=== PATIENT | female | born 1980 | race Hispanic/Latino ===

== ENCOUNTER 2019-11-02 17:48 | Emergency (ER) | payer BC ==
[~2019-11-02] VITALS: Ht 157.5 cm; Wt 71.2 kg
--- NOTE | 2019-11-02 18:30 | Emergency Department Note ---
History of Present Illnes History of Present Illness Chief Complaint: Laceration History of Present Illness This is a 38 year old female, with no significant past medical history, who pre sents for evaluation of a laceration of the palmar aspect of the left ring finger. Patient states that she was helping to clean up the kitchen after dinner this evening, when she was moving some glasses and one fell and broke, causing a piece of the glass to accidentally cut the palmar aspect of the left lateral ring finger, at the DIP joint. There is active bleeding, which patient has been unable to control, except by holding continuous pressure. The accident occurred approximately 30 minutes prior to arrival. Patient denies any numbness or tingling of the left hand. She does not recall when she had her last tetanus shot. Historian: Patient Arrival Mode: Car Septic Tank Servicer Required: No Onset (how long ago): minute(s) (30) Location: left right finger, palmar aspect; Quality: painful, bleedin; Radiation: Reports non-radiation Severity: moderate Onset quality: sudden Duration (how long): hour(s) (0.5) Timing of current episode: constant Progression: unchanged Chronicity: new Context: Reports trauma/injury (see HPI;) Relieving factors: other (holding pressure;) Associated symptoms: Reports denies other symptoms Treatments prior to arrival: none Past Medical/Family History Physician Review I have reviewed the patient's past medical and family history. Any updates have been documented here. Past Medical History Recent Fever: No Clinical Suspicion of Infectio: No New/Unexplained Change in Ment: No Past Medical History: None Past Surgical History: (x2;) Social History Smoking Cessation: Never Smoker Counseling Performed: No Any Illegal Drug Use: No TB Exposure/Symptoms: No Physically hurt or threatened: No Family History Family history of heart diseas: No Other Last Tetanus: > 5 years Any Pre-Existing Lines (PICC,: No Is patient up to date on immun: No Review of Systems Review of Systems Constitutional: Denies chills, Denies fever EENTM: Reports no symptoms Cardiovascular: Denies chest pain, Denies palpitations Respiratory: Reports no symptoms Gastrointestinal: Denies nausea, Denies vomiting Musculoskeletal: Denies muscle pain Integumentary: Reports other (laceration on palmar aspect of left ring finger) Psychological: Reports no symptoms Endocrine: Reports no symptoms Hematological/Lymphatic: Reports no symptoms Review of other systems: All other systems negative Physical Exam Related Data Allergies: Coded Allergies: No Known Allergies (Unverified , 11/02/19) Vital signs reviewed: Yes Physical Exam CONSTITUTIONAL Constitutional: Present well-developed, Present well-nourished HENT HENT: Present normocephalic, Present atraumatic, Present oropharynx clear/moist, Present nose normal HENT L/R: Present left ext ear normal, Present right ext ear normal EYES Eyes: Reports PERRL, Reports conjunctivae normal NECK Neck: Present ROM normal PULMONARY Pulmonary: Present effort normal, Present breath sounds normal CARDIOVASCULAR Cardiovascular: Present regular rhythm, Present heart sounds normal, Present capillary refill normal, Present normal rate GASTROINTESTINAL GENITOURINARY Genitourinary: Present exam deferred SKIN Skin: Present warm, Present dry, Present other (0.75 cm horizontal lac, located on the lateral aspect of the left ring finger at the DIP, with active oozing, with an aparent aterioiole bleeder; cap refill of finger is < 2 sec, radial pulse intact;) MUSCULOSKELETAL Musculoskeletal: Present ROM normal NEUROLOGICAL Neurological: Present alert, Present oriented x 3, Present no gross motor or sensory deficits; Absent sensory deficit, Absent weakness PSYCHOLOGICAL Psychological: Present mood/affect normal, Present judgement normal Results Imaging Imaging results reviewed: Yes Impressions [place] [address] Patient Name: ANGIE LONG MR #: [id number] : 1980 Age/Sex: 38/F Req #: [id number] Adm Physician: Ordered by: LETI DAY MD Report #: [id number] Location: [facility] Room/Bed: Procedure: HOPD/FINGER LT - [facility] Exam Date: 11/02/19 Exam Time: 184 REPORT STATUS: Signed X-ray left finger 3 views HISTORY: Pain. COMPARISON: None available. FINDINGS: Bandaging overlies the fourth finger, slightly limited soft tissue evaluation. Bones: No acute displaced fracture. Osseous alignment is within normal limits. Joints: The joint spaces are well-maintained. Soft tissues: The soft tissues appear unremarkable. IMPRESSION: No acute radiographic osseous abnormality or radiopaque foreign body identified. Signed by: Naveen Beard DO on 11/02/2019 7:43 PM Dictated By: NAVEEN BEARD DO 42 Transcribed By: DANIELLA on 11/02/191942 COPY TO: LETI DAY MD~ Procedures Laceration Laceration: Laceration 1 Site: hand (palmar aspect of left ring finger;) Side: left Size (cm): 0.75 Description: linear Depth: simple, single layer Local anesthesia: lidocaine 1% (a digital block was performed;) Amount of anesthesia (mL): 6 Pre-repair: wound exposed, deep structures intact Skin layer closed with: other (prolene) Size (cm): 4-0 Number of sutures: 4 Technique: simple, interrupted Additional comments The wound was examined in a bloodless field, by applying a small tourniquet to the base of the left fourth finger. The tourniquet was left on for only a short period of time, so that the wound could be better evaluated. After all 4 sutures were placed, following a digital block, there was no further bleeding from the site. Patient had full range of motion of the left ring finger, with capillary refill less than 2 seconds. Patient was observed after the sutures were placed, for approximately 30 minutes, with no recurrence of the bleeding. A dressing was placed, with copious topical antibiotics, along with a finger splint, to immobilize the finger, to protect it from further trauma, which could cause recurrent bleeding. Patient tolerated the procedure well. Assessment & Plan Medical Decision Making MDM - Reviewed the results of the x-ray of the left fourth finger with patient, which revealed no foreign bodies or glass present in the wound. - Keep wound clean and dry for 24 hours, then you may gently remove the dressing, wash with antibacterial soap and water, dry, and apply [id number]-[id number]-qofqkix antibiotic ointment generously to the wound such as "Triple Antibiotic Ointment, Bacitracin, or Neosporin." After 24 hours, you will repeat this twice daily, and cover the wound. - Keep the splint in place on the left ring finger for at least 48 hours, to allow the wound to stabilize. - Return in 10 days, for suture removal, or sooner for any signs of infection including redness, drainage, or swelling at the wound site. The sutures will be left in for this time., Due to the fact that the laceration is an area of flexion on the finger. - Return to the ER in the next 24 hours, if the wound begins to bleed profusely, or the wound is swelling or discolored. Patient is encouraged to observe the wound closely, and she was understanding of the plan. - Keep the left upper extremity elevated to the level of the heart, as much as possible, to help with pain and swelling. - You may take Extra Strength Tylenol 500 mg - 2 tablets every 4 hours as needed for pain and/or Ibuprofen/Advil 200 mg 3 tablets every 6 hours as needed for pain. Assessment & Plan Final Impression: (1) Laceration of finger of left hand Depart Disposition: HOME, SELF-CARE LETI DAY MD Nov 02, 2019 18:30
[2019-11-02] MEDS ORDERED: IBUPROFEN 600 MG TAB PO ONE (18:40)
[2019-11-02] MEDS ORDERED: DIPHTH/TETANUS/ACEL. PERTUSSIS 0.5 ML SYR IM ONE (18:45)
[2019-11-02] MEDS ORDERED: LIDOCAINE HCL 1% LOCAL INJ 20 ML VIAL ONE (18:50)
[2019-11-02] MEDS ORDERED: IBUPROFEN 600 MG TAB ONE (18:51)
[2019-11-02] MEDS ORDERED: TETANUS/DIPHTHERIA TOX ADULT 0.5 ML SYR ONE (18:51)
--- NOTE | 2019-11-02 19:46 | Diagnostic Imaging Report ---
X-ray left finger 3 views HISTORY: Pain. COMPARISON: None available. FINDINGS: Bandaging overlies the fourth finger, slightly limited soft tissue evaluation. Bones: No acute displaced fracture. Osseous alignment is within normal limits. Joints: The joint spaces are well-maintained. Soft tissues: The soft tissues appear unremarkable. IMPRESSION: No acute radiographic osseous abnormality or radiopaque foreign body identified. Signed by: Naveen Beard DO on 11/02/2019 7:43 PM
--- OUTSIDE RECORDS SUMMARY | 2019-11-02 20:52 | XMS REPORT | Clinical Summary ---
Author Author [facility] Address Unknown Phone Unavailable Care Team Providers Care Last Puller Name Role Phone PCP Unavailable Allergies Not on File Medications Not on file Active Problems Not on file Social History Date Tobacco Use Types Packs/Day Years Used Never Assessed Sex Assigned at Date Recorded Not on file Industry Job Start Date Occupation Not on file Not on file Not on file Travel End Travel History Travel Start No recent travel history available. Last Filed Vital Signs Not on file Plan of Treatment Not on file Results Not on fileafter 11/01/2018 Insurance Payer Benefit Subscriber ID Type Phone Address Plan / Group BLUE CROSS[employer]BLUE SHIELD BCBS PPO xxxxxxxxxxxx PPO [address] [place] [address] CHOICE
--- OUTSIDE RECORDS SUMMARY | 2019-11-02 20:52 | XMS REPORT | Continuity of Care Document ---
Author Author [facility] Organization [facility] Address [address] [place] [address] Phone Unavailable Care Team Providers Care Automotive Product Engineer Name Role Phone Karlie DAY Unavailable Problems This patient has no known problems. Allergies, Adverse Reactions, Alerts This patient has no known allergies or adverse reactions. Social History Social Habit Start Date Stop Date Quantity Comments Source Sex Assigned At [facility] Medications This patient has no known medications. Procedures This patient has no known procedures. Results Test Description Test Time Test Comments Results Result Comments Source FINGER LT - [facility] 2019-11-02 19:41:00 [place] [address] Patient Name: ANGIE LONG MR #: [id number] : 1980 Age/Sex: 38/F Req #: [id number] [facility] Physician: Ordered by: LETI DAY MD Report #: [id number] Location: [facility] Room/Bed: Procedure: HOPD/FINGER LT - [facility] Exam Date: 11/02/19 Exam Time: 1847 REPORT STATUS: Signed X-ray left finger 3 views HISTORY: Pain. COMPARISON: None available. FINDINGS: Bandaging overlies the fourth finger, slightly limited soft tissue evaluation. Bones: No acute displaced fracture. Osseous alignment is within normal limits. Joints: The joint spaces are well-maintained. Soft tissues: The soft tissues appear unremarkable. IMPRESSION: No acute radiographic osseous abnormality or radiopaque foreign body identified. Signed by: Naveen Beard DO on 11/02/2019 7:43 PM Dictated By: NAVEEN BEARD DO 42 Transcribed By: DANIELLA on 11/02/191942 COPY TO: LETI DAY MD
== END 2019-11-02 20:48 | disposition home or self-care (01) ==
LOC: FSED 20:30
DX: S61.215A Laceration without foreign body of left ring finger without damage to nail, initial encounter (principal); W25.XXXA Contact with sharp glass, initial encounter; Y93.G1 Activity, food preparation and clean up; Y92.000 Kitchen of unspecified non-institutional (private) residence as the place of occurrence of the external cause
CPT/HCPCS: 12001; 73140; 90471; 90714; 99283; J2001

== ENCOUNTER 2019-11-13 17:23 | Emergency (ER) | payer BC ==
[~2019-11-13] VITALS: Ht 157.5 cm; Wt 71.2 kg
--- NOTE | 2019-11-13 17:43 | Emergency Department Note ---
History of Present Illnes History of Present Illness Chief Complaint: General Medicine Complaints History of Present Illness This is a 38 year old female Chief Complaint Comment needs stitches out. left ring finger pad. She has been keeping it clean, no other concerns. Historian: Patient Arrival Mode: Car Commercial Underwriter Required: No Onset (how long ago): day(s) (11) Location: Laceration L 4th digit Quality: laceraiton Radiation: Reports non-radiation Severity: mild Onset quality: sudden Duration (how long): day(s) (11) Timing of current episode: constant Progression: improving Chronicity: new Context: Denies recent illness, Denies recent surgery Relieving factors: none Exacerbating factors: none Associated symptoms: Reports denies other symptoms Treatments prior to arrival: none Past Medical/Family History Physician Review I have reviewed the patient's past medical and family history. Any updates have been documented here. Past Medical History Recent Fever: No Clinical Suspicion of Infectio: No New/Unexplained Change in Ment: No Past Medical History: None Past Surgical History: Social History Smoking Cessation: Never Smoker Counseling Performed: No Physically hurt or threatened: No Other Last Tetanus: > 5 years Any Pre-Existing Lines (PICC,: No Review of Systems Review of Systems Constitutional: Reports no symptoms EENTM: Reports no symptoms Cardiovascular: Reports no symptoms Respiratory: Reports no symptoms Gastrointestinal: Reports no symptoms Genitourinary: Reports no symptoms Musculoskeletal: Reports no symptoms Integumentary: Reports as per HPI Neurological: Reports no symptoms Psychological: Reports no symptoms Endocrine: Reports no symptoms Hematological/Lymphatic: Reports no symptoms Physical Exam Related Data Allergies: Coded Allergies: No Known Allergies (Unverified , 11/02/19) Triage Vital Signs Vital Signs Date Time Temp Pulse Resp B/P (MAP) Pulse Ox O2 Delivery O2 Flow Rate FiO2 11/13/19 17:26 97.9 97 16 167/101 100 Room Air Vital signs reviewed: Yes Physical Exam CONSTITUTIONAL Constitutional: Present well-developed, Present well-nourished HENT HENT: Present normocephalic, Present atraumatic, Present oropharynx clear/m oist, Present nose normal HENT L/R: Present left ext ear normal, Present right ext ear normal EYES Eyes: Reports PERRL, Reports conjunctivae normal NECK Neck: Present ROM normal PULMONARY Pulmonary: Present effort normal, Present breath sounds normal CARDIOVASCULAR Cardiovascular: Present regular rhythm, Present heart sounds normal, Present capillary refill normal, Present normal rate GASTROINTESTINAL Abdominal: Present soft, Present nontender, Present bowel sounds normal GENITOURINARY Genitourinary: Present exam deferred SKIN Skin: Present warm, Present dry, Present other (Well healing 1cm laceration to Left 4th digit, volar aspect DIP crease) MUSCULOSKELETAL Musculoskeletal: Present ROM normal NEUROLOGICAL Neurological: Present alert, Present oriented x 3, Present no gross motor or sensory deficits PSYCHOLOGICAL Psychological: Present mood/affect normal, Present judgement normal Procedures Procedures Procedure: 4 4-0 prolene sutures removed from L 4th DIP crease, volar aspect Assessment & Plan Medical Decision Making MDM 38-year-old female presents for suture removal. 4 sutures removed from the left fourth digit. The laceration is well-appearing and wound edges are approximated. No signs of infection. Patient is appropriate for discharge. Assessment & Plan Final Impression: (1) Visit for suture removal Depart Disposition: HOME, SELF-CARE Last Vital Signs Date Time Temp Pulse Resp B/P (MAP) Pulse Ox O2 Delivery O2 Flow Rate FiO2 11/13/19 17:26 97.9 97 16 167/101 100 Room Air RUTH RANGEL MD Nov 13, 2019 17:43
== END 2019-11-13 17:33 | disposition home or self-care (01) ==
LOC: FSED 17:28
DX: Z48.02 Encounter for removal of sutures (principal)
CPT/HCPCS: 99282

== ENCOUNTER 2023-06-19 08:14 | Emergency (ER) | payer BC ==
[~2023-06-19] VITALS: Ht 157.5 cm; Wt 79.0 kg
[~2023-06-19 08:14] MED LIST: ALBUTEROL/IPRATROPIUM 3 ML NEB ONE; DEXAMETHASONE SOD PHOS INJ 4 MG/ML SDV ONE
[2023-06-19] MEDS ORDERED: LISINOPRIL10 MG PO (09:05)
[2023-06-19 09:50] VITALS: PULSE 110; RESP 20; O2SAT 97
[2023-06-19] MEDS: DEXAMETHASONE SOD PHOS INJ 4 MG/ML SDV IM ONE (09:50)
[2023-06-19] MEDS: ALBUTEROL/IPRATROPIUM 3 ML NEB NEB ONE (09:50)
[2023-06-19] MEDS ORDERED: AMOX TR-K CLV1 EAC2 PO (10:11)
[2023-06-19] MEDS ORDERED: PROVENTIL HFA6.7 GM INH (10:12)
== END 2023-06-19 10:34 | disposition home or self-care (01) ==
LOC: FSED 08:27
DX: R05.9 Cough, unspecified (principal); J20.9 Acute bronchitis, unspecified; I10 Essential (primary) hypertension; Z11.52 Encounter for screening for COVID-19
CPT/HCPCS: 0223U; 71046; 81003; 81025; 83518; 87400; 99284; J1100